=== PATIENT | female | born 1980 | race Caucasian/White ===

== ENCOUNTER 2020-07-05 16:50 | Emergency (ER) | payer MEDICARE, MEDICAID ==
[~2020-07-05] VITALS: Ht 177.8 cm; Wt 64.0 kg
[2020-07-05 17:00] VITALS: BP 146/89
--- NOTE | 2020-07-05 17:26 | NUR ---
FIRST CONTACT WITH PT. PT STATED"I'M HERE FOR NAUSEA AND VOMITTING. THE ENIO IN ROOM 3 GAVE ME A PILL LAST NIGHT AT THE [place]ARK AND I TOOK IT. THEN I DON'T FEEL GOOD SINCE THEN. I DON'T HAVE SHOES AND I'H HERE FOR MEDICAL NOT PSYCH." PT DENIES SI/HI. PT HAS FLIGHT OF IDEAS. RESPS EVEN AND UNLABORED.
--- NOTE | 2020-07-05 18:24 | NUR ---
pt amb to br with steady gait. urine cup given.
[2020-07-05 18:32] LABS: ALBUMIN 4.3 g/dL (3.4-5.0); ANION GAP 8 mmol/L (5-15); CALCIUM 9.6 mg/dL (8.5-10.1); CHLORIDE 107 mmol/L (98-107); CREATININE 1.15 mg/dL (0.55-1.02)
[2020-07-05 18:33] LABS: SALICYLATE LEVEL < 1.7 mg/dL (2.8-20.0)
--- NOTE | 2020-07-05 18:35 | NUR ---
pt back to room with steady gait. pt stated"i can't pee now." urine cup in room.
[2020-07-05 18:37] LABS: BASOPHILS % (AUTO) 0 % (0-1); EOSINOPHILS % (AUTO) 0 % (1-7); LYMPHOCYTES % (AUTO) 14 % (22-44); MEAN CORPUSCULAR HGB CONC 33.7 g/dL (32.4-35.8); MEAN PLATELET VOLUME 8.2 fL (7.4-10.4); MONOCYTES % (AUTO) 8 % (2-9); NEUTROPHILS % (AUTO) 78 % (42-75); PLATELET COUNT 375 x10^3/uL (130-400); RED BLOOD COUNT 4.82 x10^6/uL (3.82-5.3); RED CELL DISTRIBUTION WIDTH 13.3 % (9.6-15.2)
[2020-07-05 18:40] LABS: MD NO
--- NOTE | 2020-07-05 18:57 | NUR ---
report given to vicky morataya.
--- NOTE | 2020-07-05 20:25 | NUR ---
PT LEFT ER WITH OUT DC PAPERWORK AND REFUSED MEDICATION. PT WALKING WITH STEADY GAIT
[2020-07-05] MEDS ORDERED: DULOXETINE 30 MG CAPSULE.DR PO ONE (20:30)
[2020-07-05] MEDS ORDERED: GABAPENTIN 300 MG CAPSULE PO ONE (20:30)
[2020-07-05] MEDS ORDERED: PRAZOSIN 2 MG CAPSULE PO ONE (20:30)
== END 2020-07-05 20:27 | disposition home or self-care (01) ==
LOC: ED 17:29
DX: F33.9 Major depressive disorder, recurrent, unspecified (principal); F15.150 Other stimulant abuse with stimulant-induced psychotic disorder with delusions; F20.9 Schizophrenia, unspecified; Z91.14 Patient's other noncompliance with medication regimen; Z87.891 Personal history of nicotine dependence
CPT/HCPCS: 36415; 80048; 80307; 82040; 84703; 85025; 99283; 99406

== ENCOUNTER 2020-07-18 17:44 | Emergency (ER) | payer MEDICARE, MEDICAID ==
[~2020-07-18] VITALS: Ht 177.8 cm; Wt 70.5 kg
[2020-07-18] MEDS ORDERED: DEXAMETHASONE 4 MG TABLET PO ONE (18:30)
--- NOTE | 2020-07-18 19:44 | NUR ---
TASK RN: PT TO ROOM FROM [facility]
[2020-07-18 19:49] VITALS: BP 152/100
[2020-07-18] MEDS ORDERED: DEXAMETHASONE 4 MG TABLET ONE (19:52)
== END 2020-07-18 21:37 | disposition home or self-care (01) ==
LOC: ED 20:33
DX: J02.8 Acute pharyngitis due to other specified organisms (principal); B97.89 Other viral agents as the cause of diseases classified elsewhere; H92.01 Otalgia, right ear; Z76.0 Encounter for issue of repeat prescription
CPT/HCPCS: 87081; 87147; 87880; 99283

== ENCOUNTER 2020-09-20 19:51 | Emergency (ER) | payer MEDICARE, MEDICAID ==
[~2020-09-20] VITALS: Ht 177.8 cm; Wt 55.0 kg
[2020-09-20 19:54] VITALS: BP 154/88
--- NOTE | 2020-09-20 21:09 | NUR ---
PT WALKED OUT OF AMBULANCE BAY STATING IM GOING TO [facility]. PT STEADY AMBULATING, RESP EVEN/UNLABORED, NO IV IN PLACE. THIS RN ATTEMPTED TO GET PATIENT BACK IN ROOM AND SHE DENIED AND KEPT WALKING.
--- NOTE | 2020-09-20 21:11 | NUR ---
PT ALSO HIT CODE BLUE BUTTON BEFORE LEAVING AND STATED SHE WANTS A SANDWICH, THIS RN ATTEMPTED TO GET SANDWICH BUT PT LEFT BEFORE.
== END 2020-09-20 21:25 | disposition left against medical advice (07) ==
LOC: ED 21:13
DX: F20.9 Schizophrenia, unspecified (principal)
CPT/HCPCS: 99281